=== PATIENT | male | born 2000 | race Caucasian/White ===

== ENCOUNTER 2025-06-26 16:15 | Emergency (ER) | payer SELFPAY ==
[~2025-06-26] VITALS: Ht 177.8 cm; Wt 72.0 kg
[2025-06-26 16:25] VITALS: TEMP 36.7; O2SAT 98
[2025-06-26] MEDS: IBUPROFEN 400MG TABLET PO ONE (17:13)
[2025-06-26] MEDS ORDERED: IBUP-2028 MT (18:57)
[2025-06-26] MEDS ORDERED: FLUT9.9S BOTHNSTRLS (19:22)
[2025-06-26 19:39] VITALS: BP 166/77; PULSE 69; RESP 16; O2SAT 98
== END 2025-06-26 19:44 | disposition home or self-care (01) ==
LOC: ER 16:25
DX: S06.0XAA Concussion with loss of consciousness status unknown, initial encounter (principal); R09.81 Nasal congestion; V89.2XXA Person injured in unspecified motor-vehicle accident, traffic, initial encounter; Y93.89 Activity, other specified; Y92.89 Other specified places as the place of occurrence of the external cause; Y99.8 Other external cause status
CPT/HCPCS: 99284